=== PATIENT | female | born 1945 | race Caucasian/White ===

== ENCOUNTER → 2016-08-22 | Outpatient (CLI) | payer MEDICARE ==
[2016-08-22 12:10] LABS: ALBUMIN 4.5 g/dL (3.4-5.0); ANION GAP 16.7 MEQ/L (3-15)
== END ==
LOC: LAB 11:40
PROVIDERS: ATTEND Internal Medicine Nephrology
DX: N18.3 Chronic kidney disease, stage 3 (moderate) (principal)
CPT/HCPCS: 36415; 80069

== ENCOUNTER → 2016-09-10 | Outpatient (CLI) | payer MEDICARE | LOC: RAD 08:02 | PROVIDERS: ATTEND Internal Medicine Nephrology | DX: Z53.9 Procedure and treatment not carried out, unspecified reason (principal) ==